=== PATIENT | female | born 1995 | race Caucasian/White ===

== ENCOUNTER 2016-09-20 04:33 | Inpatient (IN) | payer OTHER ==
[2016-09-20] MEDS ORDERED: DEXTROSE 5%-LACTATED RINGERS 1,000 ML IV SCH (06:00)
--- NOTE | 2016-09-20 06:54 | HP ---
Past Medical History - Primary Care Physician PCP:: [facility] - Admission Chief Complaint: Painful contractions History of Present Illness: 21 @ 39wk1d presents with painful contractions, found to be fully dilated on arrival. no LOF, VB, +FM. ANC uncomplicated, PNC at [facility] Wanda Collins. GBS unknown. 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: Alzheimer's, CVA, Dementia, Migraine, Multiple Sclerosis, Peripheral Neuropathy, Parkinson's, Seizure, Syncope, TIA, Vertigo, Other Cardiovascular: No: AFIB, Aneurysm, Aortic Insufficiency, Aortic Stenosis, CAD, CHF, Deep Vein Thrombosis, HTN, Hyperlipdemia, TN, Mitral Insufficiency, Mitral Stenosis, Murmur, Pulmonary Hypertension, Other Pulmonary: No: Asthma, Bronchitis, Cancer, COPD, O2 Dependent, Pneumonia, Previously Intubated, Pulmonary Embolus, Pulmonary Fibrosis, Sleep Apnea, Other Gastrointestinal: No: Ascites, Cancer, Constipation, Crohn's Disease, Diverticulitis, Diverticulosis, Esophageal Varices, Gastritis, GERD, GI Bleed, Hemorrhoids, Hiatal Hernia, Inflamatory Bowel Disease, Irritable Bowel Disease, Pancreatitis, Peptic Ulcer Disease, Ulcerative Colitis, Other Hepatobiliary: No: Cirrhosis, Cholelithiasis, Cholecystitis, Choledocholithiasis , Hepatitis A, Hepatitis B, Hepatitis C, Other Renal/: No: Renal Failure, Renal Inusuff, BPH, Cancer, Hematuria, Hemodialysis , Neurogenic Bladder, Renal Calculi, UTI, Other Reproductive: No: Ectopic , Endometriosis, Fibroids, PID, Polycystic Ovary Syndrome, Postmenopausal, Other ...: 2 ...Para: 1 ...Term: 1 ...: 0 ...Spon : 0 ...Induced : 0 ...Multiple Gestation: 0 ...LMP: 12/19/15 ... Weeks Gestation by Dates: 39.3 ...EDC by Dates: 09/24/15 ...EDC by Sono: 09/26/15 Heme/Onc: No: Anemia, B12 Deficiency, Bleeding Disorder, Cancer, Current Chemotherapy, Current Radiation Therapy, Hemochromatosis, Hypercoaguable State, Myeloproliferative Synd, Sickle Cell Disease, Sickle Cell Trait, Thrombocytopenia, Other Infectious Disease: No: AIDS, C-Diff, Herpes Zoster, HIV, MRSA, STD's, Tuberculosis, VREF, Other Psych: No: Addictions, Anxiety, Bipolar, Depression, Panic, Psychosis, Schizophrenia, Other Musculoskeletal: No: Bursitis, Chronic low back pain, Hemiparesis, Hemiplegia, Osteoarthritis, Paraplegia, Other Rheumatology: No: Fibromyalgia, Gout, Lupus, Rheumatoid Arthritis, Sarcoidosis, Vasculitis, Other ENT: No: Allergic Rhinitis, Sinusitis, Other Endocrine: No: Imer's Disease, Mi's Disease, Diabetes Insipidus, Diabetes Mellitus, Hyperparathyroidism, Hyperthyroidism, Hypothyroidism, Osteopenia, SIADH, Other - Past Surgical History Past Surgical History: Yes: None Hx Myomectomy: No Hx Transabdominal Cerclage: No - Alcohol/Substance Use Hx Alcohol Use: No History of Substance Use: reports: None Home Medications - Allergies Allergies/Adverse Reactions: Allergies Allergy/AdvReac Type Severity Reaction Status Date / Time No Known Allergies Allergy Verified 09/20/16 06:53 - Home Medications Home Medications (free text): Vitamins Family Disease History - Family Disease History Family History: Unremarkable Review of Systems - Review of Systems Constitutional: reports: No Symptoms Eyes: reports: No Symptoms HENT: reports: No Symptoms Neck: reports: No Symptoms Cardiovascular: reports: No Symptoms Respiratory: reports: No Symptoms Gastrointestinal: reports: Abdominal Pain, Other (Uterine contractions) Genitourinary: reports: No Symptoms Breasts: reports: No Symptoms Reported Musculoskeletal: reports: No Symptoms Integumentary: reports: No Symptoms Neurological: reports: No Symptoms Endocrine: reports: No Symptoms Hematology/Lymphatic: reports: No Symptoms Psychiatric: reports: No Symptoms Physical Exam - Maternity Constitutional: Yes: Well Nourished Eyes: Yes: WNL HENT: Yes: WNL, Atraumatic, Normocephalic Neck: Yes: WNL Cardiovascular: Yes: WNL, Regular Rate and Rhythm Lungs: Clear to auscultation - Abdominal Exam/OB Fundal Height: 40 Number of Fetuses: Single Presentation: Vertex Contractions: No Regularity: Regular Intensity: Moderate Monitor Mode: External Heart Rate (range): 145 Category: I Accelerations: Uniform Decelerations: None - Vaginal Exam/OB Vaginal Bleediing: No Speculum Exam: No Dilatation (cm): 10 Effacement (%): 100 Amniotic Membrane Status: Intact Presentation: Vertex/Position Station: -3 - Physical Exam Musculoskeletal: Yes: WNL Extremities: Yes: WNL Edema: No Integumentary: Yes: WNL Deep Tendon Reflex Grade: Normal +2 ...Motor Strength: WNL Psychiatric: Yes: WNL Problem List - Problems (1) 39 weeks gestation of Code(s): Z3A.39 - 39 WEEKS GESTATION OF Assessment/Plan 23 @ 39wk1d in active labor, fully dilated. Intact. GBS unknown. status reassuring, Cat 1 FHT. VSS. AF. -Admit to L&D -EFM, [place] -IVH, NPO -Amp per protocol -anticipate
[2016-09-20] MEDS ORDERED: BENZOCAINE 28 GM HEMORRHOIDAL OINTMENT TP PRN (07:03)
[2016-09-20] MEDS ORDERED: METHYLERGONOVINE MALEATE 0.2 MG/1 ML AMP IM PRN (07:03)
[2016-09-20] MEDS ORDERED: WITCH HAZEL 50% (TUCKS) 40 PAD/JAR PAD TP PRN (07:03)
[2016-09-20] MEDS ORDERED: BISACODYL 10 MG SUPP.RECT RC PRN (07:03)
[2016-09-20] MEDS ORDERED: BENZOCAINE 20% 57 GM BOTTLE TP PRN (07:03)
--- NOTE | 2016-09-20 07:10 | PN ---
Delivery - Delivery Vaginal Delivery: No Problems Delivery, Single - Stages of Labor Date 1st Stage Initiatied: 09/20/16 Time 1st Stage Initiated: 02:00 Date 2nd Stage Initiated: 09/20/16 Time 2nd Stage Initiated: 05:30 Date of Delivery: 09/20/16 Time of Delivery: 06:13 Date Placenta Delivered: 09/20/16 Time Placenta Delivered: 06:20 Placenta: Yes: Spontaneous - Condition of Infant Gender: Female Position: Left, OA Remarks - Remarks Remarks: Live female infant delivered in SAAD position over intact position. Head delivered followed by body. No uchal cord noted. Cord clamped x2 and cut, infant taken to warmer. 's 9/9. First degree vaginal laceration, repaired with 2-0 vicryl after administration of lidocaine. EBL 300cc.
[2016-09-20] MEDS ORDERED: OXYTOCIN 20 UNITS in 0.9% NS 1,000 ML IV SCH (07:15)
[2016-09-20 07:24] LABS: BASOPHIL 0.4 % (0-2.0); EOSINOPHIL 1.7 % (0-4.5); MCH 31.4 pg (25.7-33.7); MCHC 34.5 g/dl (32.0-36.0); MEAN CELL VOLUME 91.2 fl (80-96); PLATELET COUNT 178 K/MM3 (134-434); RDW 15.2 % (11.6-15.6); WHITE BLOOD COUNT 6.4 K/mm3 (4.0-10.0)
[2016-09-20 07:34] VITALS: BMI 32.1
[2016-09-20 07:44] LABS: INR 1.04 (0.82-1.09); PROTHROMBIN TIME (PATIENT) 11.5 SEC (9.98-11.88)
[2016-09-20 07:46] LABS: ACTIVATED PTT 26.6 SECONDS (26.9-34.4)
[2016-09-20 07:50] LABS: CALCIUM 8.7 mg/dL (8.5-10.1); CREATININE 0.5 mg/dL (0.55-1.02)
[2016-09-20] MEDS ORDERED: TUBERCULIN PPD 5 TU/0.1ML SYRINGE (IN PATIENT USE ONLY) ID ONE (09:00)
[2016-09-20] MEDS: IBUPROFEN 600 MG TABLET (FP) PO PRN ×2 (10:24→22:56)
[2016-09-20] MEDS: ACETAMINOPHEN 325 MG TABLET (FP) PO PRN ×2 (10:25→22:58)
[2016-09-21 08:03] LABS: BASOPHIL 0.8 % (0-2.0); MCH 31.5 pg (25.7-33.7); MCHC 34.2 g/dl (32.0-36.0); MEAN CELL VOLUME 92.1 fl (80-96); MEAN PLT VOLUME 8.5 fl (7.5-11.1); NEUTROPHILS 62.6 % (42.8-82.8); PLATELET COUNT 164 K/MM3 (134-434); RDW 15.3 % (11.6-15.6); WHITE BLOOD COUNT 8.4 K/mm3 (4.0-10.0)
[2016-09-21] MEDS ORDERED: DIPHTH,PERTUSS(ACELL),TET 0.5 ML DISP.SYRIN IM ONE (10:00)
--- NOTE | 2016-09-21 10:23 | PN ---
Post Progress Note - Subjective Subjective: Doing well , no complaints. Ambulating, tolerating regular diet, passing flatus. Post Day: 1 Type of Delivery: Vital Signs: Vital Signs Temperature 97.7 F 09/21/16 06:00 Pulse Rate 83 09/21/16 06:00 Respiratory Rate 18 09/21/16 06:00 Blood Pressure 109/62 09/21/16 06:00 O2 Sat by Pulse Oximetry (%) 100 09/20/16 07:30 Breast Exam: Yes: Soft Uterus: Yes: Fundus Firm Abdomen/GI: Yes: Abdomen soft, Passing flatus Lochia: Yes: Rubra Lochia, amount: Small Extremities: Yes: Calves non-tender Activity: Ambulating - Labs Labs: CBC WBC 8.4 K/mm3 (4.0-10.0) D 09/21/16 07:00 RBC 3.85 M/mm3 (3.60-5.2) 09/21/16 07:00 Hgb 12.1 GM/dL (10.7-15.3) 09/21/16 07:00 Hct 35.4 % (32.4-45.2) 09/21/16 07:00 MCV 92.1 fl (80-96) 09/21/16 07:00 MCHC 34.2 g/dl (32.0-36.0) 09/21/16 07:00 RDW 15.3 % (11.6-15.6) 09/21/16 07:00 Plt Count 164 K/MM3 (134-434) 09/21/16 07:00 MPV 8.5 fl (7.5-11.1) 09/21/16 07:00 Neutrophils % 62.6 % (42.8-82.8) 09/21/16 07:00 Lymphocytes % 24.2 % (8-40) D 09/21/16 07:00 Monocytes % 9.4 % (3.8-10.2) 09/21/16 07:00 Eosinophils % 3.0 % (0-4.5) 09/21/16 07:00 Basophils % 0.8 % (0-2.0) 09/21/16 07:00 Problem List - Problems (1) 39 weeks gestation of Code(s): Z3A.39 - 39 WEEKS GESTATION OF (2) Normal spontaneous vaginal delivery Code(s): O80 - ENCOUNTER FOR FULL-TERM UNCOMPLICATED DELIVERY Assessment/Plan 23P2 PPD# 1 s/p . Doing well, VSS, AF, Hct stable -Routine care -Regular diet -ambulate -motrin prn pain -anticipate d/c home PPD#2
[2016-09-21] MEDS: ACETAMINOPHEN 325 MG TABLET (FP) PO PRN ×2 (11:01→20:42)
[2016-09-21] MEDS: IBUPROFEN 600 MG TABLET (FP) PO PRN ×2 (11:02→20:39)
[2016-09-21] MEDS ORDERED: SENNOSIDES/DOCUSATE COMBO (SENNA PLUS) TABLET (UD) PO PRN (22:00)
[2016-09-22] MEDS: IBUPROFEN 600 MG TABLET (FP) PO PRN (06:18)
[2016-09-22] MEDS: ACETAMINOPHEN 325 MG TABLET (FP) PO PRN (06:20)
[2016-09-22 08:13] VITALS: BP 106/64; PULSE 72; TEMP 97.8
--- NOTE | 2016-09-22 09:31 | DS ---
Physical Exam-UNDER CUTTING MACHINE OPERATOR Vital Signs: Vital Signs Temperature 97.8 F 09/22/16 08:11 Pulse Rate 72 09/22/16 08:11 Respiratory Rate 20 09/22/16 08:11 Blood Pressure 106/64 09/22/16 08:11 O2 Sat by Pulse Oximetry (%) 100 09/20/16 07:30 Constitutional: Yes: Well Nourished, No Distress Eyes: Yes: WNL HENT: Yes: WNL, Atraumatic, Normocephalic Neck: Yes: WNL Cardiovascular: Yes: WNL, Regular Rate and Rhythm Respiratory: Yes: WNL, Regular Gastrointestinal: Yes: WNL Pelvis: Yes: WNL External Genitalia: Yes: Normal Vaginal Exam: Yes: Normal Uterus: Yes: Normal ....Post : Yes: Uterus firm, Uterus non-tender Extremities: Yes: WNL Edema: No Neurological: Yes: WNL Labs: CBC, BMP 09/21/16 07:00 09/20/16 05:00 Delivery - Delivery Vaginal Delivery: No Problems Type of Anesthesia: Local Episiotomy/Laceration: Vaginal Extension/lac, 1st degree EBL (cc): 350 Delivery, Single - Stages of Labor Date 1st Stage Initiatied: 09/20/16 Time 1st Stage Initiated: 02:00 Date 2nd Stage Initiated: 09/20/16 Time 2nd Stage Initiated: 05:30 Date of Delivery: 09/20/16 Time of Delivery: 06:13 Time Placenta Delivered: 06:20 Placenta: Yes: Spontaneous - Condition of Infant Customer Program Specialist/Merchant Seaman Present: No Infant Gender: Female Weight: 8 lb 6 oz Position: Left, OA Total Hours ROM (Hrs/Mins): 43m - 1 Minute Total Score: 9 5 Minutes Total Score: 9 - [place] Feeding Plan Initial Plan: Elected not to breastfeed exclusively throughout hospitalization Remarks - Remarks Remarks: Live female infant delivered in SAAD position over intact position. Head delivered followed by body. No uchal cord noted. Cord clamped x2 and cut, taken to warmer. 's 9/9. First degree vaginal laceration, repaired with 2-0 vicryl after administration of lidocaine. EBL 300cc. course uneventful. Discharge home PPD#2. Tolerating regular diet, voiding, ambulating, pain well controlled. No complaints. Will f/u at [address] in 6 weeks for visit Discharge Summary Reason For Visit: LABOR Current Active Problems 39 weeks gestation of (Acute) Normal spontaneous vaginal delivery (Acute) Condition: Good - Instructions Diet, Activity, Other Instructions: Post Instructions DIET: Continue good diet high in protein, calcium, and iron rich foods. Drink at least eight (8) glasses of water daily in addition to other fluids. ___ Regular diet MEDICATIONS: Continue vitamins and iron as previously directed. Motrin and Tylenol may be taken for minor discomfort. ACTIVITY: Mild to moderate exercise may be started in two (2) weeks. Take frequent rest periods. Resume normal activity after six (6) week check up. WOUND CARE OF OPERATIVE SITE: Continue use of perineal bottle until vaginal discharge stops. Keep area clean. Shower daily. Keep abdominal wound dry. Report any drainage or redness to physician. Tub baths, tampons and douches are not permitted for 6 weeks. ____ Breast feeding ___ Bottle feeding BREAST CARE: (For those that are not ): If engorgement occurs: Wear tight fitting bra. Take Tylenol or Motrin for pain. Apply cold packs (ice in bags to each breast ) FAMILY PLANNING: There are many control alternatives to pursue and they should be discussed at your first office visit. You may resume sexual activity after your six (6) week check up. (Remember, is not a contraceptive) NEXT PHYSICIAN APPOINTMENT: Be certain to call [facility] for a six (6) week appointment. [phone] Call Clinic or got to Emergency Dept if you have any of the following: Heavy vaginal bleeding Painful urination Leg pain Unusual odor noted to vaginal bleeding High fever Red streaking noted on breast Referrals: Emmanuelle Arnett MD [Staff Physician] - Disposition: HOME - Home Medications Comprehensive Discharge Medication List: Ambulatory Orders Docusate Sodium [Colace -] 100 mg PO DAILY #30 capsule 09/21/16 Ferrous Sulfate [Feosol] 325 mg PO DAILY #30 tablet 09/21/16 Ibuprofen [Motrin -] 600 mg PO QID #28 tablet 09/21/16
== END 2016-09-22 14:10 | disposition home or self-care (01) | DRG 560 ==
LOC: JLDR 04:33 → UNDOADMIN 04:33 → JLDR 05:47 → J3W 08:02
PROVIDERS: ADMIT Obstetrics & Gynecology; ATTEND Obstetrics & Gynecology
PROC: 0HQ9XZZ Repair Perineum Skin, External Approach (ICD-10-PCS; principal; 2016-09-20)
PROC: 0W8NXZZ Division of Female Perineum, External Approach (ICD-10-PCS; 2016-09-20)
PROC: 10E0XZZ Delivery of Products of Conception, External Approach (ICD-10-PCS; 2016-09-20)
DX: O70.0 First degree perineal laceration during delivery (principal); Z3A.39 39 weeks gestation of pregnancy; Z37.0 Single live birth
CPT/HCPCS: 36415; 59409; 71020-TC; 80048; 85025; 85610; 85730; 86593; 86850; 86900; 86901; 90715